=== PATIENT | female | born 1955 | race Asian ===

== ENCOUNTER 2019-05-14 20:58 | Emergency (ER) | payer OTHER, BC ==
[~2019-05-14] VITALS: Ht 157.5 cm; Wt 52.6 kg
[2019-05-14 21:05] VITALS: Ht 157.5 cm; Wt 52.6 kg
[2019-05-14 22:45] VITALS: BP 179/87
== END 2019-05-14 22:45 | disposition home or self-care (01) ==
LOC: ED 20:58
DX: S01.01XA Laceration without foreign body of scalp, initial encounter (principal); I10 Essential (primary) hypertension; E11.9 Type 2 diabetes mellitus without complications; E78.00 Pure hypercholesterolemia, unspecified; W22.03XA Walked into furniture, initial encounter; Y93.89 Activity, other specified; Y92.89 Other specified places as the place of occurrence of the external cause; Y99.8 Other external cause status
CPT/HCPCS: 90715